=== PATIENT | female | born 1990 | race Caucasian/White ===

== ENCOUNTER 2018-10-17 19:58 | Emergency (ER) | payer OTHER ==
[~2018-10-17] VITALS: Ht 149.9 cm; Wt 47.2 kg
--- NOTE | 2018-10-17 20:50 | NUR ---
URINE COLLECTED AND SENT TO LAB
--- NOTE | 2018-10-17 21:15 | NUR ---
PT BIBSELF C/O ANXIETY AND PANIC ATTACKS. PT STATES SHE HAS HISTORY, BUT "HAS BEEN HAVING A HARD PAST FEW MONTHS." PT ALSO STATES "SOMETIMES I HAVE THOUGHTS OF HARMING MYSELF" DENIES PLAN, HI, OR HALLUCINATIONS. PT AAOX4. VITAL SIGNS STABLE. RESPIRATIONS EVEN AND UNLABORED. SKIN INTACT. NO ACUTE DISTRESS NOTED AT THIS TIME
--- NOTE | 2018-10-17 21:15 | NUR ---
COUNSELOR AT LAW AT BEDSIDE FOR BLOOD DRAW
[2018-10-17 21:21] LABS: EOSINOPHILS % (AUTO) 0.2 % (0.0-6.0); HEMOGLOBIN 14.6 g/dL (11.5-14.8); LYMPHOCYTES # (AUTO) 1.2 /CMM (0.8-4.8); MEAN CORPUSCULAR VOLUME 95 fL (82-100); MONOCYTES # (AUTO) 0.5 /CMM (0.1-1.30); WHITE BLOOD COUNT (AUTO) 5.7 K/uL (4.3-11.0)
[2018-10-17 21:27] LABS: CALCIUM, SERUM 8.9 mg/dL (8.5-10.1); CARBON DIOXIDE 24 mmol/L (21-32); CHLORIDE 101 mmol/L (98-107); CREATININE 0.9 mg/dL (0.6-1.3); GLUCOSE 69 mg/dL (74-106); POTASSIUM 3.5 mmol/L (3.5-5.1); SODIUM SERUM 137 mmol/L (136-145); UREA NITROGEN, BLOOD 17 mg/dL (7-18)
[2018-10-17 21:29] LABS: APPEARANCE,URINE Clear (CLEAR); BILIRUBIN,URINE SMALL (NEGATIVE); BLOOD, URINE Trace-lysed Ery/uL (NEGATIVE); COLOR,URINE Yellow (YELLOW); KETONES,URINE >=160 (NEGATIVE); LEUKOCYTE ESTERASE ,URINE Negative (NEGATIVE); NITRITE, URINE Positive (NEGATIVE); PROTEIN,URINE Trace mg/dl (NEGATIVE); UGLUCOSE Negative (NEGATIVE); UROBILINOGEN,URINE 0.2 EU/dL (0.2)
[2018-10-17 21:44] LABS: ACETAMINOPHEN < 5 ug/ml (10-30); ALANINE AMINOTRANSFERASE 16 U/L (12-78); ALBUMIN 4.4 g/dL (3.4-5.0); ALKALINE PHOSPHATASE 65 U/L (46-116); ASPARTATE AMINOTRANSFERASE 17 U/L (15-37); BILIRUBIN,DIRECT 0.1 mg/dL (0.0-0.2); BILIRUBIN,TOTAL 0.5 mg/dL (0.2-1.0); SALICYLATE 2.1 mg/dL (2.8-20.0); TOTAL PROTEIN, SERUM 3.8 g/dL (6.4-8.2)
[2018-10-17 21:45] LABS: ALCOHOL, BLOOD < 3 mg/dL (0-0)
[2018-10-17 21:49] LABS: BASOPHILS % (AUTO) 0.3 % (0.0-2.0); HEMATOCRIT 43 % (33-45); LYMPHOCYTES % (AUTO) 21.8 % (20.0-44.0); MEAN CORPUSCULAR HGB CONC 34 g/dl (31.0-36.0); MONOCYTES % (AUTO) 8.8 % (2.0-12.0); NEUTROPHILS # (AUTO) 3.9 /CMM (1.8-8.9); NEUTROPHILS % (AUTO) 68.9 % (43.0-81.0); PLATELET COUNT (AUTO) 212 /CMM (150-450)
[2018-10-17 22:02] LABS: BACTERIA,URINE Moderate /HPF (None Seen); MUCUS,URINE Many /LPF (None Seen); RBC,URINE 2-3/HPF /HPF (0-2); SQUAMOUS EPITHELIAL CELL,UR Few /HPF (None Seen); URINE AMORPHOUS URATE Moderate /HPF (None Seen)
--- NOTE | 2018-10-18 00:20 | NUR ---
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
[2018-10-18] MEDS ORDERED: LORAZEPAM 1 MG TABLET ONE (00:36)
--- NOTE | 2018-10-18 00:45 | NUR ---
Patient discharged to home in stable condition. Written and verbal after care instructions given. Patient verbalizes understanding of instructions. Pt ambulatory with a steady gait. Instructed not to drive, pt verblaized understanding
[2018-10-18 00:47] VITALS: BP 118/79
[2018-10-18] MEDS ORDERED: LORAZEPAM 1 MG TABLET PO ONE (01:00)
== END 2018-10-18 00:47 | disposition home or self-care (01) ==
LOC: ER 20:08
DX: F41.9 Anxiety disorder, unspecified (principal); F32.9 Major depressive disorder, single episode, unspecified; Z88.1 Allergy status to other antibiotic agents; Z88.8 Allergy status to other drugs, medicaments and biological substances; Z60.2 Problems related to living alone
CPT/HCPCS: 36415; 80048; 80076; 80305; 80307; 80329; 81001; 84703; 85025; 87077; 87086; 87186; 87491; 87591; 99284; G0480; 81000-TC